=== PATIENT | female | born 1990 | race Caucasian/White ===

== ENCOUNTER → 2017-05-19 | Outpatient (CLI) | payer BC ==
[2016-01-05 15:24] VITALS: BP 122/60
[~2017-05-19] MED LIST: BACLOFEN10 M1 PO; CELEBREX 1100 MG/CAP PO; KLONOPIN0.5 M1 PO; NEUROPATHY MED PO; PERCOCET 325 MG1 TA2 PO; PREDNISONE20 MG PO; PROZAC20 M1 PO; ZOVIRAX 800MG800 M1 PO
[2017-05-19 22:02] LABS: CLUE CELLS PRESENT (Not Observd)
== END ==
LOC: LAB 17:56
PROVIDERS: Nurse Practitioner Family
DX: N76.0 Acute vaginitis (principal); Z88.5 Allergy status to narcotic agent
CPT/HCPCS: Q0111

== ENCOUNTER → 2020-05-30 | Outpatient (CLI) | payer BC ==
[2016-01-05 15:24] VITALS: BP 122/60
[2020-05-30 09:56] LABS: EOS # 0.1 (0.04-0.40); EOS % 0.9 % (1.0-5.0); HEMATOCRIT 45.6 % (37.0-47.0); HEMOGLOBIN 14.9 g/dL (12.5-16.0); MEAN CELL VOLUME 91 fl (78-100); MEAN CORPUSCULAR HEMOGLOBIN 30 pg (27-31); MEAN CORPUSCULAR HGB CONC 33 g/dL (33-37); MEAN PLATELET VOLUME 9.2 fl (7.4-10.4); MONO # 0.7 (0.20-0.80); PLATELET COUNT 329 K/mm3 (130-400); RED BLOOD COUNT 5.04 M/mm3 (4.10-5.30); RED CELL DISTRIBUTION WIDTH 12.1 % (11.5-14.5); WHITE BLOOD COUNT 6.8 K/mm3 (4.8-10.8)
[2020-05-30 10:19] LABS: ALBUMIN 4.7 g/dL (3.5-5.0); POTASSIUM 4.1 mmol/L (3.5-5.1); SODIUM 141 mmol/L (136-145)
[2020-05-30 10:20] LABS: CALCIUM 9.4 mg/dL (8.3-10.5)
[2020-05-30 10:22] LABS: GLUCOSE 98 mg/dL (65-105); TOTAL PROTEIN 7.9 g/dL (6.4-8.3)
[2020-05-30 10:23] LABS: CARBON DIOXIDE 26 mmol/L (22-29)
[2020-05-30 10:24] LABS: TOTAL BILIRUBIN 0.8 mg/dL (0.2-1.2)
[2020-05-30 10:27] LABS: AST-SGOT 16 U/L (5-34)
[2020-05-30 10:28] LABS: ALT/SGPT 19 U/L (0-55)
[2020-05-30 11:00] LABS: ERYTHROCYTE SEDIMENTATION RATE 3 mm/hr (0-20)
[2020-05-31 15:36] LABS: ANA SCREEN with REFLEX Negative (Negative)
[2020-06-01 02:45] LABS: ANTI-CYC CITRULLINATED PEPT AB <20.0 CU (0.0-19.9)
== END ==
LOC: LAB 09:25
PROVIDERS: Internal Medicine
DX: K90.9 Intestinal malabsorption, unspecified (principal); M65.9 Synovitis and tenosynovitis, unspecified; R20.2 Paresthesia of skin

== ENCOUNTER → 2020-07-18 | Outpatient (CLI) | payer BC ==
[2016-01-05 15:24] VITALS: BP 122/60
[2020-07-18 21:51] LABS: PROGESTERONE 0.3 ng/mL (())
== END ==
LOC: LAB 10:17
PROVIDERS: Internal Medicine
DX: K90.9 Intestinal malabsorption, unspecified (principal); N91.2 Amenorrhea, unspecified

== ENCOUNTER → 2024-01-02 | Outpatient (CLI) | payer BC ==
[2024-01-02 08:59] LABS: BASO # 0.02 K/mm3 (0.02-0.10); EOS # 0.07 K/mm3 (0.04-0.40); EOS % 1.6 % (1.0-5.0); HEMATOCRIT 38.5 % (37.0-47.0); HEMOGLOBIN 12.8 g/dL (12.5-16.0); LYMPH# 1.48 K/mm3 (1.50-4.00); MEAN CELL VOLUME 89 fl (78-100); MEAN CORPUSCULAR HEMOGLOBIN 30 pg (27-31); MEAN CORPUSCULAR HGB CONC 33 g/dL (33-37); MONO # 0.31 K/mm3 (0.20-0.80); NEU # 2.42 K/mm3 (1.40-6.50); PLATELET COUNT 271 K/mm3 (130-400); RED BLOOD COUNT 4.32 M/mm3 (4.10-5.30); RED CELL DISTRIBUTION WIDTH 11.7 % (11.5-14.5); WHITE BLOOD COUNT 4.3 K/mm3 (4.8-10.8)
[2024-01-02 09:15] LABS: ALBUMIN 4.5 g/dL (3.5-5.0)
[2024-01-02 09:16] LABS: CALCIUM 9.4 mg/dL (8.3-10.5)
[2024-01-02 09:17] LABS: TOTAL PROTEIN 7.4 g/dL (6.4-8.3)
[2024-01-02 09:19] LABS: TOTAL BILIRUBIN 0.5 mg/dL (0.2-1.2)
== END ==
LOC: LAB 08:42
PROVIDERS: Internal Medicine
DX: Z00.00 Encounter for general adult medical examination without abnormal findings (principal)